=== PATIENT | male | born 1975 | race Caucasian/White ===

== ENCOUNTER 2018-09-10 10:03 | Emergency (ER) | payer OTHER ==
[~2018-09-10] VITALS: Ht 198.1 cm; Wt 95.3 kg
[~2018-09-10 10:03] MED LIST: FLEXERIL PO; NAPROSYN500 MG PO
[2018-09-10 10:40] VITALS: BP 166/96
== END 2018-09-10 10:51 | disposition home or self-care (01) ==
LOC: M.ERS 10:03
DX: S61.411A Laceration without foreign body of right hand, initial encounter (principal); X58.XXXA Exposure to other specified factors, initial encounter; Y93.89 Activity, other specified; Y92.89 Other specified places as the place of occurrence of the external cause; Y99.8 Other external cause status

== ENCOUNTER 2019-07-05 22:12 | Emergency (ER) | payer OTHER | END 2019-07-05 23:30 | LOC: M.ERS 22:12 | DX: Z02.89 Encounter for other administrative examinations (principal) ==